=== PATIENT | male | born 1975 | race Caucasian/White ===

== ENCOUNTER 2017-12-13 21:04 | Emergency (ER) | payer MEDICAID, SELFPAY ==
[2017-12-13 21:05] VITALS: BP 125/88; PULSE 107; RESP 14; TEMP 36.9; O2SAT 96; BMI 23.7
--- NOTE | 2017-12-13 21:45 | RAD_ITS ---
STUDY: X-RAY - RIGHT HAND REASON FOR EXAM: Male, 42 years old. Injury to right hand after punching refrigerator. TECHNIQUE: Three view(s) of the hand. COMPARISON: None. FINDINGS: Bones: There is a comminuted fracture of the distal aspect of the fifth metacarpal with dorsal angulation at the fracture site. Joints: The joints are unremarkable. Soft tissues: The soft tissues are unremarkable. Foreign body: None RAD/Hand Min 3 Views IMPRESSION: Boxer's fracture of the fifth metacarpal as described. Electronically Signed: Vin Malhotra MD at 22:34 EST , Service support ,
[2017-12-13] MEDS: Diphth,Pertuss(Acell),Tet Vac 0.5 ML Vial IM (22:19)
--- NOTE | 2017-12-13 23:27 | ED.DCSUM_ITS ---
- ER Visit Summary Date of Service: 12/13/17 Chief Complaint: Right hand pain History of Present Illness: The patient is a 42 M presenting with right hand pain. Patient states he was angry and punched the refrigerator. He denies hitting a person. He denies suicidal ideation. He is right-handed. No other injuries. Physical Examination: Vitals are stable. Patient is afebrile. Alert no acute distress. HEENT exam is unremarkable. Lungs are clear and equal bilaterally. Heart is regular rate and rhythm. Extremities tenderness of 5th metacarpal. Mild superficial abrasion dorsal right hand. Skin is warm and dry Remainder of exam is unremarkable. Emergency Department Course and Treatment: Ice pack was applied. He was given tetanus IM. X-ray of the right hand shows there is a comminuted fracture of the distal aspect of the fifth metacarpal with dorsal angulation at the fracture site. Orthoglass splint was applied. He was given [place] ?1. Advised to follow-up with Dr. Lopez. Advised return to ED if worsening complaints. Disposition: Discharge home Impression: Right fifth metacarpal fracture This note was generated with Sensipass dictation software. It may contain incorrect words, spelling, and punctuation that were not noted in review of the chart prior to signing ED Disposition - Plan for ED Patient: Chief Complaint: Upper Extremity Injury Instructions: ED Fx Boxer Prescriptions: Hydrocodone/Acetaminophen [[place] 5-325 Tablet] 1 each PO 4X/DAY 2 Days #12 tablet Referrals: Derian Sun MD [Primary Care Provider] - Lincoln Lopez DO [STAFF PHYSICIAN] -
--- NOTE | 2017-12-13 23:29 | ED.DEP ---
ED Disposition - Plan for ED Patient: Chief Complaint: Upper Extremity Injury Instructions: ED Fx Keith Referrals: Derian Sun MD [Primary Care Provider] - Lincoln Lopez DO [STAFF PHYSICIAN] -
[2017-12-13] MEDS: HYDROcodone Bitartrate/Apap 5/325 Tablet PO (23:30)
--- NOTE | 2017-12-13 23:42 | ED.DEP ---
ED Disposition - Plan for ED Patient: Chief Complaint: Upper Extremity Injury Instructions: ED Fx Boxer Prescriptions: Hydrocodone/Acetaminophen [[place] 5-325 Tablet] 1 each PO 4X/DAY 2 Days #12 tablet Referrals: Derian Sun MD [Primary Care Provider] - Lincoln Lopez DO [STAFF PHYSICIAN] -
[2017-12-14 00:08] VITALS: BP 118/78; PULSE 76; RESP 18; O2SAT 100
== END 2017-12-14 00:09 | disposition home or self-care (01) ==
PROVIDERS: Emergency Provider Emergency Medicine; Family Provider Family Medicine; PCP Family Medicine
DX: S62.306A Unspecified fracture of fifth metacarpal bone, right hand, initial encounter for closed fracture (principal); S60.511A Abrasion of right hand, initial encounter; W22.09XA Striking against other stationary object, initial encounter; Y93.9 Activity, unspecified; Y92.9 Unspecified place or not applicable; Y99.9 Unspecified external cause status; Z72.0 Tobacco use; Z23 Encounter for immunization
CPT/HCPCS: 29125; 73130; 90471; 90715; 99283

== ENCOUNTER → 2017-12-25 09:55 | Outpatient (CLI) | payer MEDICAID, SELFPAY ==
--- NOTE | 2017-12-25 09:58 | RAD_ITS ---
STUDY: X-RAY - RIGHT HAND REASON FOR EXAM: Male, 42 years old. Follow-up for fifth metacarpal fracture. TECHNIQUE: 3 view(s) of the hand were obtained in a cast. COMPARISON: Comparison is made with prior study dated December 13, 2017. FINDINGS: Normal radiocarpal articulation. Normal distal radioulnar joint. Normal visualized carpal bones. Normal carpal articulations Normal carpometacarpal articulation of the thumb. Normal second through fifth carpometacarpal joints. Stable alignment of the comminuted fracture of the distal aspect of the fifth metacarpal with residual mild dorsal angulation. Normal metacarpophalangeal joint of the thumb. Normal interphalangeal joint of the thumb. Normal proximal and distal phalanges of the thumb. Normal metacarpophalangeal joints of the second through fifth fingers. Normal proximal and distal interphalangeal joints of the second through fifth fingers. Normal phalanges of the second through fifth fingers. The soft tissue structures are unremarkable. RAD/Hand Min 3 Views IMPRESSION: Stable alignment of the boxer type fracture of the distal fifth metacarpal. Electronically Signed: Paulo Zavala MD at 8:18 EST Tel [phone], Service support ,
== END ==
PROVIDERS: Family Provider Family Medicine; PCP Family Medicine; Visit Provider Orthopaedic Surgery
DX: S62.336A Displaced fracture of neck of fifth metacarpal bone, right hand, initial encounter for closed fracture (principal); X58.XXXA Exposure to other specified factors, initial encounter; Y93.9 Activity, unspecified; Y92.9 Unspecified place or not applicable; Y99.9 Unspecified external cause status
CPT/HCPCS: 73130

== ENCOUNTER → 2018-01-08 09:43 | Outpatient (CLI) | payer MEDICAID, SELFPAY ==
--- NOTE | 2018-01-08 09:45 | RAD_ITS ---
XR Hand Min 3 Views INDICATION: fracture COMPARISON: December 25, 2017 TECHNIQUE: 3 views of the right hand FINDINGS: There is redemonstration of an angulated fracture at the distal diaphyseal region of the right fifth carpal. Overlying cast obscures osseous detail. There is suggestion of faint periosteal reaction/early signs of healing. RAD/Hand Min 3 Views IMPRESSION: Stable angulation at the right fifth metacarpal fracture. Signs of healing. at 1817 Reported and signed by: Shikha Pineda MD Electronically Signed: Shikha Pineda MD at 17:15 EST Tel , Service support ,
== END ==
PROVIDERS: Family Provider Family Medicine; PCP Family Medicine; Visit Provider Orthopaedic Surgery
DX: S62.336A Displaced fracture of neck of fifth metacarpal bone, right hand, initial encounter for closed fracture (principal); X58.XXXA Exposure to other specified factors, initial encounter; Y93.9 Activity, unspecified; Y92.9 Unspecified place or not applicable; Y99.9 Unspecified external cause status
CPT/HCPCS: 73130

== ENCOUNTER → 2018-01-22 09:55 | Outpatient (CLI) | payer MEDICAID, SELFPAY ==
--- NOTE | 2018-01-22 09:59 | RAD_ITS ---
STUDY: X-RAY - RIGHT HAND REASON FOR EXAM: Male, 42 years old. Follow-up fracture. TECHNIQUE: 3 view(s) of the hand. COMPARISON: January 08, 2018. FINDINGS: Normal radiocarpal articulation. Normal distal radioulnar joint. Normal visualized carpal bones. Normal carpal articulations Normal carpometacarpal articulation of the thumb. Normal second through fifth carpometacarpal joints. Again seen is a fracture of the distal fifth metacarpal with volar angulation of the distal fracture fragment. There is no marked callus formation to suggest healing. The fracture lines are clearly defined. Remainder the metacarpals are unremarkable. Normal metacarpophalangeal joint of the thumb. Normal interphalangeal joint of the thumb. Normal proximal and distal phalanges of the thumb. Normal metacarpophalangeal joints of the second through fifth fingers. Normal proximal and distal interphalangeal joints of the second through fifth fingers. Normal phalanges of the second through fifth fingers. The soft tissue structures are unremarkable. The semiradiopaque cast seen on the prior study is no longer present. RAD/Hand Min 3 Views IMPRESSION: Comminuted fracture of the fifth metacarpal with volar angulation of the head of the metacarpal. There is no visualized callus formation or healing. Electronically Signed: Miguel Angel Yanez DO at 17:10 EDT Tel [phone], Service support ,
== END ==
PROVIDERS: Family Provider Family Medicine; PCP Family Medicine; Visit Provider Orthopaedic Surgery
DX: S62.336A Displaced fracture of neck of fifth metacarpal bone, right hand, initial encounter for closed fracture (principal); X58.XXXA Exposure to other specified factors, initial encounter; Y93.9 Activity, unspecified; Y92.9 Unspecified place or not applicable; Y99.9 Unspecified external cause status
CPT/HCPCS: 73130

== ENCOUNTER → 2018-02-05 09:43 | Outpatient (CLI) | payer MEDICAID, SELFPAY ==
--- NOTE | 2018-02-05 09:46 | RAD_ITS ---
STUDY: X-RAY - RIGHT HAND REASON FOR EXAM: Male, 42 years old. Follow-up contrast in TECHNIQUE: 3 view(s) of the hand. COMPARISON: 01/22/2018 FINDINGS: Normal radiocarpal articulation. Normal distal radioulnar joint. Normal visualized carpal bones. Normal carpal articulations Normal carpometacarpal articulation of the thumb. Normal second through fifth carpometacarpal joints. Boxer type fracture of the fifth distal metacarpal with volar angulation with mild impaction, there is no evidence of callus formation. There is no apparent interval change. Otherwise normal metacarpi. Normal metacarpophalangeal joint of the thumb. Normal interphalangeal joint of the thumb. Normal proximal and distal phalanges of the thumb. Normal metacarpophalangeal joints of the second through fifth fingers. Normal proximal and distal interphalangeal joints of the second through fifth fingers. Normal phalanges of the second through fifth fingers. The soft tissue structures are unremarkable. RAD/Hand Min 3 Views IMPRESSION: Boxer type fracture fifth metacarpals without callus formation. Electronically Signed: Mae Castro MD at 7:47 EDT , Service support ,
== END ==
PROVIDERS: Family Provider Family Medicine; PCP Family Medicine; Visit Provider Orthopaedic Surgery
DX: S62.336A Displaced fracture of neck of fifth metacarpal bone, right hand, initial encounter for closed fracture (principal); X58.XXXA Exposure to other specified factors, initial encounter; Y93.9 Activity, unspecified; Y92.9 Unspecified place or not applicable; Y99.9 Unspecified external cause status; S62.306D Unspecified fracture of fifth metacarpal bone, right hand, subsequent encounter for fracture with routine healing; X58.XXXD Exposure to other specified factors, subsequent encounter
CPT/HCPCS: 73130; 97166; 97760

== ENCOUNTER 2018-02-05 10:00 | Outpatient (RCR) | payer MEDICAID, SELFPAY ==
--- NOTE | 2018-02-05 16:18 | HP.OTEVAL_ITS ---
Patient's Visit Information AKI VASQUEZ is a 42 year old M, referred to Occupational Therapy by Lincoln Lopez DO,MTODD, with a diagnosis of Right 5th pox.phal fx. Date of Evaluation: 02/05/18 Occupational Therapist: Melody Banuelos, USHA/John, CHT - Subjective Subjective: Pt arrives from office in need of custom right orthosis to provide protection and support to right 5th prox. phal while pt contines to heal - states he fx his hand Dec.12 and his healing has been slow- - ROM ROM Comments: pt demo with MCP to 30 degrees of flex- and PIP ext to 0, to place pt in dr. specified position- - Strength Strength Comments: Not tested- order for protective orthosis - Hand/Wrist Evaluation Total Score of Pain & Functional Sections: 33 - Goals Goal:: pt demo understanding of orthosis use for right hand by end of 1st session. pt will demo understaning of skin precautions while using orthosis by end of 1st session. pt will demo ind. donning/doffing orthosis by end of 1st session. pt demo understanding to return to clinic for orthosis adj. as needed to increase compliance and use of orthosis by end of 1st session. - Rehabilitation General Assessment: pt demo a need of custom orthosis for pt to cont. with healing- of right hand fx. pt was ed. on orthosis use and precautions. pt was also advised to return to the clinic for adj. to orthosis as needed to ensure comfort Rehabilitation Potential: Good - Anticipated Interventions Anticipated Interventions: Orthoses, Home Program Other Interventions: pt ed. on orthosis use and precautions- and to return to clinic for adj of orthosis if skin irritation or swelling arises - Visit Plan Frequency: one visit General Plan: pt seen for orthosis alisson. only at this time- TEXT: Thank you for the opportunity to evaluate your patient. For Medicare and Medicare HMO plans, please review the plan of care and approve it. It will need to be FAXED BACK to us at [phone] for Medicare purposes. Please let me know if there are questions or concerns regarding this plan of care. Physician Signature: Date:
--- NOTE | 2018-04-22 13:52 | HP.OT.NRP ---
HP - Discharge Summary - Patient Information AKI VASQUEZ was seen in my office for initial evaluation on 02/05/18. The following Plan of Care was established for this patient: Initial Frequency: one visit - Anticipated Interventions Anticipated Interventions: Orthoses, Home Program Other Interventions: pt ed. on orthosis use and precautions- and to return to clinic for adj of orthosis if skin irritation or swelling arises This patient was last seen in our office 02/05/18. Pertinent comments regarding their Occupational therapy will appear below: pt was seen for othosis alisson. only- pt did not return and is now D/C at this time. At this point I will be discontinuing this patient from occupational therapy. I would be happy to see this patient again in the future if found appropriate by the physician. Thank you! Melody Banuelos, OTR/L, CHT
== END 2018-02-05 19:00 | disposition home or self-care (01) ==
LOC: OT 10:00
PROVIDERS: Family Provider Family Medicine; PCP Family Medicine; Visit Provider Orthopaedic Surgery
DX: S62.306D Unspecified fracture of fifth metacarpal bone, right hand, subsequent encounter for fracture with routine healing
CPT/HCPCS: 97166; 97760

== ENCOUNTER → 2018-02-26 09:40 | Outpatient (CLI) | payer MEDICAID, SELFPAY ==
--- NOTE | 2018-02-26 09:42 | RAD_ITS ---
STUDY: X-RAY - RIGHT HAND REASON FOR EXAM: Male, 42 years old. History of fracture with pain radiating to the elbow. TECHNIQUE: 3 view(s) of the hand. COMPARISON: Prior right hand films of February 05, 2018 FINDINGS: Normal radiocarpal articulation. Normal distal radioulnar joint. Degenerative cyst of the navicular. Normal carpal articulations Normal carpometacarpal articulation of the thumb. Normal second through fifth carpometacarpal joints. Healing fracture of the distal fifth metacarpal with a mild radial and moderate volar displacement unchanged from prior exam. Increasing callus at the fracture site. Normal metacarpophalangeal joint of the thumb. Normal interphalangeal joint of the thumb. Normal proximal and distal phalanges of the thumb. Normal metacarpophalangeal joints of the second through fifth fingers. Normal proximal and distal interphalangeal joints of the second through fifth fingers. Normal phalanges of the second through fifth fingers. The soft tissue structures are unremarkable. RAD/Hand Min 3 Views IMPRESSION: Healing fracture of the distal fifth metacarpal. Increasing callus at the fracture site. Continued mild radial and moderate volar angulation of the distal fracture. Electronically Signed: Radha Madison MD at 16:58 EDT , Service support ,
== END ==
PROVIDERS: Family Provider Family Medicine; PCP Family Medicine; Visit Provider Orthopaedic Surgery
DX: S62.336A Displaced fracture of neck of fifth metacarpal bone, right hand, initial encounter for closed fracture (principal); X58.XXXA Exposure to other specified factors, initial encounter; Y93.9 Activity, unspecified; Y92.9 Unspecified place or not applicable; Y99.9 Unspecified external cause status
CPT/HCPCS: 73130

== ENCOUNTER 2018-06-10 10:30 | Outpatient (RCR) | payer MEDICAID, SELFPAY ==
--- NOTE | 2018-04-23 11:19 | HP.OTEVAL_ITS ---
Patient's Visit Information AKI VASQUEZ is a 42 year old M, referred to Occupational Therapy by Sukhwinder Chavez, with a diagnosis of closed displaced Fx of 5th metacarpal bone right hand. Date of Evaluation: 04/23/18 Occupational Therapist: USHA Ferguson/John, CHT - Subjective Subjective: This 42 year old male was seen for inital OT eval following a right 5th MCP fx. s/p right 5th metacarpal ORIF oon 04-11-18. pt attends session for orthoplast ulnar gutter splint hand based and ROM. 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 pt would like to return to PLOF - Pain right hand 6 Pain Intensity Range: 3, 7 - ROM Wrist: right wrist 50/40 left WNL ROM Comments: right MCP LF -20/35 PIP -10/90. right MCP RF 0/40 PIP 0/90. right MCP MF 0/50 PIP 0/65. right MCP IF 0/50 PIP 0/55 - Strength Crop Quantitative Geneticist: right NT Strength Comments: will test strength at later date - Edema Other: minimal - Sensation Sensation Comments: denies - Hand/Wrist Evaluation Total Score of Pain & Functional Sections: 77 - Goals Goal:: following 6 weeks s/p ORIF pt will demo a increase in right industrial relations manager to 40# or greater to increase pts ind. with BADLS and IADLS Goal:: pt will demo the ability to form a composite fist to return to performing his ADLS and IADLS at ind. level. Goal:: pt will report pain no greater than 1/10 with use of right hand when performing IADLS and home mtg by d/c Goal:: pt will demo the ability to type and manipulate coins ind. by d/c Goal:: pt will demo understanding of scar mtg by end of vist - Rehabilitation General Assessment: Pt demo with healing incision on dorsom of right hand-pt was fabricated custom orthosis ulnar gutter- pt was ed. in use and donning and doffing of orthosis, and orthosis skin precautions. pt demo understanding- Pt was also ed in ROM of digits and wrist,forearm and elbow to increase pts functional grasp. pt again demo understanding of ex. pt would benefit from skilled OT services 1-2x week for 4-6 weeks to gain a composite fist and return pt to PLOF. Rehabilitation Potential: Good - Anticipated Interventions Anticipated Interventions: A/AAROM/PROM, Strengthening, Scar Care, Triggerpoint Release, Modalities, Orthoses, Joint Protection/Energy Conservation, Ergonomic Education, Fine Motor Coord/Mike, Home Program - Visit Plan Frequency: 1-2x /Week Duration: 6 Weeks TEXT: Thank you for the opportunity to evaluate your patient. For Medicare and Medicare HMO plans, please review the plan of care and approve it. It will need to be FAXED BACK to us at [phone] for Medicare purposes. Please let me know if there are questions or concerns regarding this plan of care. Physician Signature: Date:
--- NOTE | 2018-05-20 11:01 | OTREVAL_ITS ---
Sukhwinder Chavez, It has been my pleasure to treat AKI VASQUEZ over the last 9 visits for closed displaced Fx of 5th metacarpal bone right hand. Please see the progress note below for an update on the occupational therapy plan of care! Subjective: pt states he is doing good- states he has been lion tape LF to RF Objective/Function: pt demo with RF MCP flex 55. LF MCP flex 45 following treatment 60 degrees of flex of MCP- pt demo good digit ext as well-. PIP right LF 85. right biomedical equipment tech strength 65# left 120#. pt is making good progress Plan Plan: rec'd increase ROM as able and PRE with HEP Goals - Goals Goal:: following 6 weeks s/p ORIF pt will demo a increase in right biomedical equipment tech to 40# or greater to increase pts ind. with BADLS and IADLS Goal:: pt will demo the ability to form a composite fist to return to performing his ADLS and IADLS at ind. level. Goal:: pt will report pain no greater than 1/10 with use of right hand when performing IADLS and home mtg by d/c Goal:: pt will demo the ability to type and manipulate coins ind. by d/c Goal:: pt will demo understanding of scar mtg by end of 3rd vist Anticipated Interventions Anticipated Interventions: A/AAROM/PROM, Strengthening, Scar Care, Triggerpoint Release, Modalities, Orthoses, Joint Protection/Energy Conservation, Ergonomic Education, Fine Motor Coord/Mike, Home Program Please do not hesitate to contact me at [phone] by phone or Fax: if you have questions or concerns regarding this new plan of care! Sincerely, Melody Banuelos, OTR/L, CHT
--- NOTE | 2018-06-10 11:28 | HP.OTDCSUM ---
HP - OT D/C Summary It has been my pleasure to treat AKI VASQUEZ under orders from Sukhwinder Chavez, for the diagnosis of closed displaced Fx of 5th metacarpal bone right hand for a total of 13 visit(s). Please see the following information for a summary of their discharge status. - Objective Objective/Function: pt demo a right electrical assembler strength 95# a increase from 65#. pt reports no pain. pt demo the ability to form a composite fist. pt is ind. with all IADL and home mtg tasks. - Goals Patient Goals: Regain Mobility, Regain Strength, Decrease Pain, Use Hand/Wrist/Arm Normally Again Goal:: following 6 weeks s/p ORIF pt will demo a increase in right electrical assembler to 40# or greater to increase pts ind. with BADLS and IADLS Goal:: pt will demo the ability to form a composite fist to return to performing his ADLS and IADLS at ind. level. Goal:: pt will report pain no greater than 1/10 with use of right hand when performing IADLS and home mtg by d/c Goal:: pt will demo the ability to type and manipulate coins ind. by d/c Goal:: pt will demo understanding of scar mtg by end of vist - Plan Plan: D/C - D/C Information Discharge Comments: Pt was seen for 13 visits. pt progressed from ROM and strength to become ind. with all BADLS and IADLS. pt has met functional goals in OT and is D/C at this time. If there are questions or concerns regarding this patient's occupational therapy, please fell free to call me at [phone]. Thank you for the referral of this patient. Sincerely, Melody Banuelos, OTR/L, CHT
== END 2018-06-10 19:00 | disposition home or self-care (01) ==
LOC: OT 10:30
PROVIDERS: Family Provider Family Medicine; PCP Family Medicine; Visit Provider Orthopaedic Surgery
DX: S62.336 Displaced fracture of neck of fifth metacarpal bone, right hand (principal)
CPT/HCPCS: 97110; 97140; 97166; 97530; 97760; 97763

== ENCOUNTER 2024-01-12 14:48 | Observation (INO) | payer MEDICAID, SELFPAY ==
[2024-01-12 14:51] VITALS: BP 137/68; PULSE 119; RESP 18; TEMP 36.7; O2SAT 96; BMI 21.2
--- NOTE | 2024-01-12 15:05 | EKG12_ITS ---
Test Reason : DETOX Blood Pressure : / mmHG Vent. Rate : 094 BPM Atrial Rate : 094 BPM P-R Int : 162 ms QRS Dur : 086 ms QT Int : 340 ms P-R-T Axes : 070 069 063 degrees QTc Int : 425 ms Normal sinus rhythm Normal ECG Confirmed by Lincoln Marr ([id number]), development editor KWAN DOWNING ([id number]) on 01/14/2024 7:14:23 AM Referred By: BELTRAN Confirmed By:Lincoln Marr
--- NOTE | 2024-01-12 15:08 | NURSING ---
NO OLD EKGS
--- NOTE | 2024-01-12 15:08 | EX.ED.SAOD ---
HPI History of Present Illness Chief Complaint: Substance Abuse Informant: patient Narrative Narrative: Patient presents requesting help with alcohol detox. He has been a heavy drinker for quite some time. He states he is never been through a formal detox program. He has tried to quit drinking at home cold turkey but only made it about 4 days. He does not believe he is ever had a seizure when he stops drinking. He states he is up to drinking 60-90 beers a week. His last drink was this morning. He does state he feels anxious, but he also has a lot of social issues going on right now and is not sure how much the alcohol is contributing. He is undergoing a separation from his . Patient does report some chest pain, but again is unsure if this is related to anxiety. PFSH PFSH Medical History no medical history no medical history Home Medications ibuprofen 800 mg tablet 800 mg PO TID PRN 12/18/17 [History Last Taken Unknown] Allergy/AdvReac Type Severity Reaction Status Date / Time No Known Allergies Allergy Verified 01/12/24 14:49 Family History Other Cancer Colon cancer Heart disease Surgical History H/O: vasectomy Social History (Updated 01/12/24 @ 15:[address] Sonam Oviedo MD) Smoking Status: Current every day smoker alcohol intake: current alcohol intake frequency: 3 or more drinks per day Alcohol type: beer ROS ROS ED Constitutional Constitutional ED: Denies chills or fever(s) Eyes Eyes: Denies change in vision or discharge from eye(s) ENT ENT ED: Denies discharge from eye(s), rhinorrhea or sore throat Cardiovascular Cardiovascular: Reports chest pain; Denies palpitations Respiratory/Chest Respiratory/Chest: Denies cough or dyspnea Gastrointestinal Gastrointestinal: Denies abdominal pain, nausea or vomiting Genitourinary Genitourinary ED: Denies dysuria Musculoskeletal Musculoskeletal: Denies back pain or extremity pain Integumentary Denies Abrasions or rash Neurologic Neurologic: Denies headache(s) or weakness Psychiatric Psychiatric: Reports anxiety and depression Allergic/Immunologic Allergic/Immunologic ED: Denies lip swelling or urticaria EXAM Physical Exam Const Vital Signs: 01/12/24 14:51 01/12/24 15:18 Temperature 98.1 F 97.2 F L Temperature Source Temporal Oral Pulse Rate 119 H 108 H Respiratory Rate 18 17 Blood Pressure 137/68 H 142/87 H Blood Pressure Mean 91 105 Blood Pressure Source Monitor Blood Pressure Position Supine Blood Pressure Location Right Arm Pulse Ox 96 99 Oxygen Delivery Method Room Air Room Air Positive well nourished and well developed General Appearance ED: well developed HEENT Reports moist mucous membranes Eyes EOMs intact bilaterally Chest Wall inspection of chest normal and palpation of chest normal Resp normal respiratory effort and clear to auscultation bilaterally Cardio Rate: tachycardic GI soft to palpation and non-tender Neuro oriented x3 and no sensory deficits noted Sensorium / Orientation: alert Psych Mood & Affect: anxious and tearful MDM MDM MDM Narrative Medical decision making narrative: Patient reviews the rules the detox program. IV line initiated. Patient given IV Ativan. EKG obtained to evaluate for cardiac arrhythmia/ischemia. Labwork obtained to evaluate for leukocytosis, anemia, and electrolyte derangement. History & Record Review Discussion w/independent historian: Patient Lab Data Attestation: I reviewed the patient's lab results. Labs: Laboratory Results - last 24 hr 01/12/24 01/12/24 01/12/24 13:35 14:42 15:00 WBC 10.8 RBC 5.13 Hgb 16.2 Hct 48.7 MCV 94.9 H MCH 31.6 MCHC 33.3 RDW Std Deviation 43.8 RDW Coeff of Yoli 12.6 Plt Count 352 MPV 9.6 Immature Gran % (Auto) 0.500 Neut % (Auto) 66.5 Lymph % (Auto) 26.3 Wheeler % (Auto) 5.3 Eos % (Auto) 0.8 Baso % (Auto) 0.6 Absolute Neuts (auto) 7.2 Absolute Lymphs (auto) 2.84 Nucleated RBC % 0 Sodium 143 Potassium 3.7 Chloride 105 Carbon Dioxide 30.0 Anion Gap 8 BUN 9 Creatinine 1.09 Estim Creat Clear Calc 84.34 Est GFR (MDRD) Af Amer 93 Est GFR (MDRD) Non-Af 77 BUN/Creatinine Ratio 8.3 L Glucose 77 Calcium 9.2 Total Bilirubin 0.40 AST 11 L ALT 20 Alkaline Phosphatase 79 Total Protein 7.4 Albumin 4.0 Globulin 3.4 Albumin/Globulin Ratio 1.2 Ur Drug Screen Comment Ethyl Alcohol < 3.0 EKG Initial EKG: Attestation: I personally reviewed and interpreted this EKG as follows: Interpretation: Sinus Rhythm (Sinus at 94 with no acute ischemia.) Treatment and Re-Evaluation Narrative: CBC was normal white count at 10.8 with a hemoglobin of 16.2. Normal differential. Chemistry studies unremarkable. LFTs are unremarkable. EtOH is less than 3. Urine tox screen has been collected but is currently pending. I will speak with hospitalist regarding admission. Discharge Plan Triage Chief Complaint: Substance Abuse ED Provider: Sonam Oviedo Dx/Rx/DC Orders Clinical Impression: Desire for detoxification, ETOH abuse Prescriptions: No Action ibuprofen 800 mg tablet 800 mg PO TID PRN Primary Care Provider: Derian Sun Referrals: Derian Sun MD [Primary Care Provider] - Disposition Disposition: [facility]
[2024-01-12 15:18] VITALS: BP 142/87; PULSE 108; RESP 17; TEMP 36.2; O2SAT 99
[2024-01-12] MEDS: Lorazepam 2 MG/ML WCH Syringe 1 MG IV (15:23)
[2024-01-12 15:25] LABS: Absolute Lymphocyte Count 2.84 X10^3/uL (0.83-4.51); Absolute Neutrophil Count 7.2 X10^3/uL (2.0-7.7); Basophil# 0.07 X10^3/uL; Basophil% 0.6 % (0-1); Eosinophil# 0.09 X10^3/uL; Eosinophils% 0.8 % (0-5); Hematocrit 48.7 % (40-54); Hemoglobin 16.2 g/dL (13.0-16.5); Lymphocyte # 2.84 X10^3/ul (0.83-4.51); Lymphocyte % 26.3 % (19-41); Mean Corp Hgb Conc 33.3 g/dL (32-36); Mean Corpuscular Hgb 31.6 pg (27.0-32.0); Mean Corpuscular Volume 94.9 fL (80-94); Mean Platelet Vol. 9.6 fl (6.2-12.0); Monocyte# 0.57 X10^3/uL; Monocyte% 5.3 % (0-10); NRBC Flagged by Analyzer 0 % (0-5); Neutrophil # 7.16 X10^3/uL (2.7-7.7); Neutrophil % 66.5 % (47-70); Platelet Count 352 K/mm3 (150-450); RBC Distribution Width CV 12.6 % (11.6-14.6); RBC Distribution Width SD 43.8 fl (35.1-43.9); Red Blood Count 5.13 M/mm3 (4.6-6.2); White Blood Count 10.8 K/mm3 (4.4-11.0)
[2024-01-12 15:41] LABS: Alcohol, Blood (Medical)-Serum < 3.0 mg/dL
[2024-01-12 15:50] LABS: ALB/GLOB Ratio 1.2 RATIO (0.9-2.4); AST(SGOT) 11 U/L (15-37); Alanine Aminotransfer ALT/SGPT 20 U/L (16-61); Alkaline Phosphatase 79 U/L (45-117); Anion Gap 8 (5-15); BUN 9 mg/dL (7-18); BUN/Creat Ratio 8.3 RATIO (10-20); Calcium,Total 9.2 mg/dL (8.5-10.1); Chloride 105 mmol/L (98-107); Creatinine, Serum 1.09 mg/dL (0.70-1.30); EST Glomerular Filtration Rate 77 mL/min (>60); Est Glom Filt Rate - Afr Amer 93 mL/min (>60); Estimated Creatinine Clearance 84.34 ml/min; Globulin 3.4 g/dL (2.2-4.2); Glucose 77 mg/dL (74-106); Potassium 3.7 mmol/L (3.5-5.1); Protein, Total 7.4 g/dL (6.4-8.2); Sodium Level 143 mmol/L (136-145)
--- NOTE | 2024-01-12 16:02 | ED.RN ---
Paged hospitalist for admit
[2024-01-12 16:04] LABS: Amphetamine Urine VISTA NEGATIVE (<1000 ng/mL); Barbiturate Urine VISTA NEGATIVE (< 200 ng/mL); Benzodiazepine Urine VISTA NEGATIVE (< 200 ng/mL); Cocaine Urine VISTA NEGATIVE (< 300 ng/mL); Ecstacy Urine VISTA NEGATIVE (< 500 ng/mL); Methadone Urine VISTA NEGATIVE (< 300 ng/mL); PCP Urine VISTA NEGATIVE (< 25 ng/mL); THC Urine VISTA NEGATIVE (< 50 ng/mL); Vista UDS pH Range 6
--- NOTE | 2024-01-12 16:04 | PCM.HP.STD ---
[facility] - General General Date of Service: 01/12/24 Chief Complaint: Desire for alcohol detoxification HPI Narrative AKI VASQUEZ, is a 48 M with no significant past medical history who presents to the ED for alcohol detox. He has been drinking 60 to 90 cans of beers every week for the past 6 months. He has been extremely stressed because of ongoing social issues in his personal life. Also smokes about 2 packs a day. He is motivated to quit. 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 His last drink was this morning [facility] Medical History no medical history Home Medications ibuprofen 800 mg tablet 800 mg PO TID PRN 12/18/17 [History Last Taken Unknown] Allergy/AdvReac Type Severity Reaction Status Date / Time No Known Allergies Allergy Verified 01/12/24 14:49 Family History Other Cancer Colon cancer Heart disease Surgical History H/O: vasectomy Social History (Updated 01/12/24 @ 15:[address] Sonam Oviedo MD) Smoking Status: Current every day smoker alcohol intake: current alcohol intake frequency: 3 or more drinks per day Alcohol type: beer ROS Review of Systems ROS Unobtainable: Denies due to encephalopathy, due to endotracheal tube, due to mental condition, due to mental status or other Constitutional Constitutional: Denies anorexia, change in weight, chills, fatigue, fever(s), malaise, night sweats, weakness or other Eyes Eyes: Denies blurry vision, change in eye color, change in vision, discharge from eye(s), double vision, erythema, eye pain, loss of vision or other ENT HEENT: Denies abnormal hearing, dysphagia, ear pain, epistaxis, headache(s), hearing loss, nasal congestion, nasal discharge, post nasal drip, sinus pressure, sore throat or other Cardiovascular Cardiovascular: Denies chest pain, claudication, dyspnea on exertion, edema, lightheadedness, orthopnea, palpitations, paroxysmal nocturnal dyspnea, rapid heart rate, syncope or other Respiratory/Chest Respiratory/Chest: Denies cough, dyspnea, excessive phlegm production, hemoptysis, productive cough, shortness of breath at rest, shortness of breath with exertion, wheezing or other Gastrointestinal Gastrointestinal: Denies abdominal pain, coffee ground emesis, constipation, diarrhea, dyspepsia, hematemesis, hematochezia, loose stools, melena, nausea, vomiting or other Genitourinary Genitourinary: Denies burning urination, difficulty urinating, dysuria, hematuria, nocturia, urinary frequency, urinary hesitancy, urinary incontinence, urinary urgency or other Musculoskeletal Musculoskeletal: Denies arthralgias, back pain, joint pain, joint stiffness, joint swelling, myalgias, neck pain or other Neurologic Neurologic: Denies abnormal gait, abnormal speech, confusion, disequilibrium, dizziness, focal weakness, headache(s), numbness, paresthesias, seizure-like activity, seizures, syncope, tingling, tremor(s) or other Psychiatric Psychiatric: Denies anxiety, depression, homicidal ideation, suicidal ideation or other Endocrine Endocrinology: Denies change in body appearance, cold intolerance, excessive sweating, heat intolerance, polydipsia, polyuria or other Hematologic/Lymphatic Hematologic/Lymphatic: Denies anemia, easy bleeding, easy bruising, lymphadenopathy or other Allergic/Immunologic Allergic/Immunologic: Denies rhinitis, hives, eczemia, asthma or other Vital Signs Vital Signs Vital Signs: 01/12/24 14:51 01/12/24 15:18 Temperature 98.1 F 97.2 F L Temperature Source Temporal Oral Pulse Rate 119 H 108 H Respiratory Rate 18 17 Blood Pressure 137/68 H 142/87 H Blood Pressure Mean 91 105 Blood Pressure Source Monitor Blood Pressure Position Supine Blood Pressure Location Right Arm Pulse Ox 96 99 Oxygen Delivery Method Room Air Room Air Weight Weight: 156 lb 14.4 oz Body Mass Index (BMI) 21.2 Physical Exam Const alert and oriented x3 Constitutional Narrative: Malnourished HEENT normocephalic Mouth: oral and palatal mucosa normal Eyes PERRL and EOMs intact bilaterally Neck no lymphadenopathy and supple Resp normal respiratory effort Cardio regular rate GI normal to inspection, nondistended, normoactive bowel sounds Extremity normal to inspection Neuro oriented x3 and CN's II-XII intact bilaterally Psych Mood & Affect: anxious Results Medical Records Data Attestation: I reviewed the patient's medical records Lab / Micro Data Attestation: I reviewed the patient's lab results. 01/12/24 15:00 01/12/24 14:42 Labs: Laboratory Results - last 24 hr 01/12/24 13:35: Urine Opiates Screen NEGATIVE, Urine Methadone Screen NEGATIVE, Ur Barbiturates Screen NEGATIVE, Ur Phencyclidine Scrn NEGATIVE, Ur Amphetamines Screen NEGATIVE, MDMA (Ecstasy) Screen NEGATIVE, U Benzodiazepines Scrn NEGATIVE, Urine Cocaine Screen NEGATIVE, U Cannabinoids Screen NEGATIVE, Ur Drug Screen Comment 01/12/24 14:42: Sodium 143, Potassium 3.7, Chloride 105, Carbon Dioxide 30.0, Anion Gap 8, BUN 9, Creatinine 1.09, Estim Creat Clear Calc 84.34, Est GFR (MDRD) Af Amer 93, Est GFR (MDRD) Non-Af 77, BUN/Creatinine Ratio 8.3 L, Glucose 77, Calcium 9.2, Total Bilirubin 0.40, AST 11 L, ALT 20, Alkaline Phosphatase 79, Total Protein 7.4, Albumin 4.0, Globulin 3.4, Albumin/Globulin Ratio 1.2 01/12/24 15:00: WBC 10.8, RBC 5.13, Hgb 16.2, Hct 48.7, MCV 94.9 H, MCH 31.6, MCHC 33.3, RDW Std Deviation 43.8, RDW Coeff of Yoli 12.6, Plt Count 352, MPV 9.6, Immature Gran % (Auto) 0.500, Neut % (Auto) 66.5, Lymph % (Auto) 26.3, [place] % (Auto) 5.3, Eos % (Auto) 0.8, Baso % (Auto) 0.6, Absolute Neuts (auto) 7.2, Absolute Lymphs (auto) 2.84, Nucleated RBC % 0, Ethyl Alcohol < 3.0 Assessment & Plan Assessment/Plan (1) ETOH abuse: PLAN: Plan 48-year-old man with no past medical history presents for inpatient alcohol detoxification and assistance with the addiction. His last drink was today morning, he is a heavy alcohol user and drinks about 60-90 beers per week. He is motivated to quit at this time. No other drug use 1. Alcohol detoxification: -Will be started on the CIWA protocol -Will be started on gabapentin as needed, Bentyl as needed, hydroxyzine as needed, thiamine supplementation folic acid supplementation -Phenobarbital taper 2. DVT: Low risk for DVT, encourage mobilization 3. Anxiety: Likely related to alcohol withdrawal, will evaluate again after the detoxification Charges/Coding Visit Charges Inpatient E&M: 79381 Init Hosp L2
--- NOTE | 2024-01-12 16:16 | NURSING ---
MED SURG MCINTYRE ETOH ABUSE, DESIRE FOR DETOX
[2024-01-12 20:25] VITALS: BP 118/81; PULSE 82; RESP 16; TEMP 36.7; O2SAT 92
[2024-01-12 20:42] VITALS: BMI 19.8
[2024-01-12] MEDS: hydrOXYzine PAM 25 MG Capsule 50 MG PO (21:14)
[2024-01-12] MEDS: Phenobarbital 32.4 MG Tablet 64.8 MG PO (21:14)
[2024-01-12 21:22] VITALS: BP 119/88; PULSE 70; RESP 18; TEMP 36.8; O2SAT 95
[2024-01-12 21:43] LABS: Prothrombin Time (Protime)PT. 12.7 SECONDS (11.7-14.9)
[2024-01-13] MEDS: Phenobarbital 32.4 MG Tablet 64.8 MG PO ×6 (00:55→20:09)
[2024-01-13] MEDS: hydrOXYzine PAM 25 MG Capsule 50 MG PO ×2 (00:55→20:08)
[2024-01-13 05:11] VITALS: BP 116/84; PULSE 81; RESP 18; TEMP 36.6; O2SAT 97
[2024-01-13 07:48] LABS: Absolute Lymphocyte Count 2.61 X10^3/uL (0.83-4.51); Absolute Neutrophil Count 3.8 X10^3/uL (2.0-7.7); Basophil# 0.06 X10^3/uL; Basophil% 0.8 % (0-1); Eosinophil# 0.15 X10^3/uL; Eosinophils% 2.1 % (0-5); Hematocrit 43.6 % (40-54); Hemoglobin 14.5 g/dL (13.0-16.5); Lymphocyte # 2.61 X10^3/ul (0.83-4.51); Lymphocyte % 36.4 % (19-41); Mean Corp Hgb Conc 33.3 g/dL (32-36); Mean Corpuscular Hgb 31.7 pg (27.0-32.0); Mean Corpuscular Volume 95.2 fL (80-94); Mean Platelet Vol. 9.7 fl (6.2-12.0); Monocyte# 0.53 X10^3/uL; Monocyte% 7.4 % (0-10); NRBC Flagged by Analyzer 0 % (0-5); Neutrophil # 3.81 X10^3/uL (2.7-7.7); Platelet Count 268 K/mm3 (150-450); RBC Distribution Width CV 12.9 % (11.6-14.6); RBC Distribution Width SD 44.4 fl (35.1-43.9); Red Blood Count 4.58 M/mm3 (4.6-6.2); White Blood Count 7.2 K/mm3 (4.4-11.0)
[2024-01-13 08:25] LABS: ALB/GLOB Ratio 1.2 RATIO (0.9-2.4); AST(SGOT) 8 U/L (15-37); Alanine Aminotransfer ALT/SGPT 15 U/L (16-61); Albumin, Serum 3.1 g/dL (3.2-5.0); Alkaline Phosphatase 57 U/L (45-117); Anion Gap 5 (5-15); BUN 9 mg/dL (7-18); BUN/Creat Ratio 11.7 RATIO (10-20); Calcium,Total 8.1 mg/dL (8.5-10.1); Chloride 112 mmol/L (98-107); Creatinine, Serum 0.77 mg/dL (0.70-1.30); EST Glomerular Filtration Rate 115 mL/min (>60); Est Glom Filt Rate - Afr Amer 140 mL/min (>60); Estimated Creatinine Clearance 111.38 ml/min; Globulin 2.6 g/dL (2.2-4.2); Glucose 86 mg/dL (74-106); Magnesium 2.6 mg/dL (1.6-2.6); Potassium 3.8 mmol/L (3.5-5.1); Protein, Total 5.7 g/dL (6.4-8.2); Sodium Level 143 mmol/L (136-145); Thyroid Stim Hormone (TSH) 0.76 uIU/mL (0.358-3.74)
[2024-01-13 09:09] VITALS: BP 118/77; PULSE 88; RESP 18; TEMP 36.6; O2SAT 96
[2024-01-13] MEDS: Ensure Plus High Protein 120 ML LIQUID PO (09:21)
[2024-01-13] MEDS: Thiamine Hydrochloride 100 MG Tablet PO (09:21)
[2024-01-13] MEDS: Folic Acid 1 MG Tablet PO (09:21)
--- NOTE | 2024-01-13 09:53 | PCM.PN.HOSP ---
Reason for Visit Reason for Visit: Diagnoses Alcohol abuse, uncomplicated (01/12/24) Objective Data Objective Data Vital Signs: Vital Signs Temp Pulse Resp BP Pulse Ox O2 Del Method 97.8 F 88 18 118/77 96 Room Air 01/13/24 09:09 01/13/24 09:09 01/13/24 09:09 01/13/24 09:09 01/13/24 09:09 01/13/24 09:09 Oxygen Delivery Method Room Air Weight: 146 lb 6 oz Body Mass Index (BMI) 19.8 Lab / Micro Data 01/13/24 07:04 01/13/24 07:04 Labs: Laboratory Results - last 24 hr 01/12/24 13:35: Urine Opiates Screen NEGATIVE, Urine Methadone Screen NEGATIVE, Ur Barbiturates Screen NEGATIVE, Ur Phencyclidine Scrn NEGATIVE, Ur Amphetamines Screen NEGATIVE, MDMA (Ecstasy) Screen NEGATIVE, U Benzodiazepines Scrn NEGATIVE, Urine Cocaine Screen NEGATIVE, U Cannabinoids Screen NEGATIVE, Ur Drug Screen Comment 01/12/24 14:42: Sodium 143, Potassium 3.7, Chloride 105, Carbon Dioxide 30.0, Anion Gap 8, BUN 9, Creatinine 1.09, Estim Creat Clear Calc 84.34, Est GFR (MDRD) Af Amer 93, Est GFR (MDRD) Non-Af 77, BUN/Creatinine Ratio 8.3 L, Glucose 77, Calcium 9.2, Total Bilirubin 0.40, AST 11 L, ALT 20, Alkaline Phosphatase 79, Total Protein 7.4, Albumin 4.0, Globulin 3.4, Albumin/Globulin Ratio 1.2 01/12/24 15:00: WBC 10.8, RBC 5.13, Hgb 16.2, Hct 48.7, MCV 94.9 H, MCH 31.6, MCHC 33.3, RDW Std Deviation 43.8, RDW Coeff of Yoli 12.6, Plt Count 352, MPV 9.6, Immature Gran % (Auto) 0.500, Neut % (Auto) 66.5, Lymph % (Auto) 26.3, [place] % (Auto) 5.3, Eos % (Auto) 0.8, Baso % (Auto) 0.6, Absolute Neuts (auto) 7.2, Absolute Lymphs (auto) 2.84, Nucleated RBC % 0, Ethyl Alcohol < 3.0 01/12/24 21:23: PT 12.7, INR 1.0 01/13/24 07:04: WBC 7.2, RBC 4.58 L, Hgb 14.5, Hct 43.6, MCV 95.2 H, MCH 31.7, MCHC 33.3, RDW Std Deviation 44.4 H, RDW Coeff of Yoli 12.9, Plt Count 268, MPV 9.7, Immature Gran % (Auto) 0.300, Neut % (Auto) 53.0, Lymph % (Auto) 36.4, [place] % (Auto) 7.4, Eos % (Auto) 2.1, Baso % (Auto) 0.8, Absolute Neuts (auto) 3.8, Absolute Lymphs (auto) 2.61, Nucleated RBC % 0, Sodium 143, Potassium 3.8, Chloride 112 H, Carbon Dioxide 26.0, Anion Gap 5, BUN 9, Creatinine 0.77, Estim Creat Clear Calc 111.38, Est GFR (MDRD) Af Amer 140, Est GFR (MDRD) Non-Af 115, BUN/Creatinine Ratio 11.7, Glucose 86, Calcium 8.1 L, Phosphorus 4.0, Magnesium 2.6, Total Bilirubin 0.30, Direct Bilirubin 0.10, AST 8 L, ALT 15 L, Alkaline Phosphatase 57, Total Protein 5.7 L, Albumin 3.1 L, Globulin 2.6, Albumin/Globulin Ratio 1.2, TSH 0.76 Physical Exam Narrative Seen and examined. Patient is states he has ordered for hallucinations sometimes tactile hallucination 2. Patient drinks 60 to 90 cans of Joel beer in 1 week. Physical exam General: Alert, Oriented x3, Cooperative HEENT: Atraumatic, PERRLA, EOMI, Normocephalic Oral: No Gingival or Mucosal Lesions/ Ulcerations Neck: Supple, No JVD, Negative Carotid Bruits Chest wall/Lungs: Air entry diminished in bilateral lung bases. No crepitation/rhonchi Cardiovascular: Regular rate, Regular Rhythm, Normal S1, Normal S2, No M/G/R Abdomen: Bowel Sounds Present, Soft, Non Tender, Non-Distended : No dysuria. No renal angle tenderness. No suprapubic tenderness. Extremities: No edema, Capillary Refill Less than 3 Seconds Skin: No rashes, No breakdown Musculoskeletal: No Tenderness to Palpation of Joints or Extremities Neurological: Cranial nerves II-XII grossly intact, DTR 2+/4. No acute focal neurological deficit. Psych/Mental Status: Flat affect. Feeling restless, could not sleep. Hallucination Assessment & Plan Assessment/Plan (1) ETOH abuse: PLAN: Plan 48-year-old man with no past medical history presents for inpatient alcohol detoxification and assistance with the addiction. His last drink was today morning, he is a heavy alcohol user and drinks about 60-90 beers per week. He is motivated to quit at this time. No other drug use 1. Acute alcohol withdrawal symptoms with hallucinations with chronic alcohol use dependence and tolerance: Patient is being admitted to Medr floor. Patient on phenobarbital based order set along with other adjunctive medications gabapentin, Bentyl, Vistaril, clonidine, Klonopin as needed for alcohol withdrawal symptom control. Patient is on thiamine and folate acid. CIWA monitor. manager beauty consulted.. 2. Anxiety and hallucinations, psychotic symptoms: Likely related to alcohol withdrawal, will evaluate again after the detoxification 3. DVT prophylaxis: Low risk. Early ambulation encouraged Charges/Coding Visit Charges Inpatient E&M: 50172 Subs Hosp L2
--- NOTE | 2024-01-13 11:30 | ADDICTION ---
This advertising copywriter met with PT to conduct ASAM, MSE, AUDIT assessments and to plan for d/c. PT A+Ox4 and participated actively. All assessments completed. PT plans to f/u with individual counselor at [facility] for RUBY treatment services. PT did not indicate a need for transportation post d[facility]c [facility].
[2024-01-13] MEDS: Senna/Docusate Sodium 1 Tablet 2 TABLET PO (16:02)
[2024-01-13] MEDS: Nicotine Polacrilex 2 MG GUM PO (16:02)
--- NOTE | 2024-01-13 16:47 | CHAPLAIN ---
Type of Pastoral Visit _x__ Initial Visit ___ Follow-up Visit ___ On-call Visit ___ General Patient Visit ___ Spiritual Assessment ___ Family Conference ___ Bereavement ___ Rapid Response ___ Code Blue ___ Other (describe below) Pastoral Care Referral From _x__ Patient ___ Family ___ Nurse ___ Physician ___ Lab Aid ___ Governor Assembler Hydraulic ___ Other (describe below) Sacrament/Intervention _x__ Active listening ___ Anointing ___ Episcopalian ___ Bereavement ___ Communion _x__ Stephanie exploration ___ _x__ Life review _x__ Prayer ___ Reconciliation ___ Sacrament of Sick _x__ Supportive presence ___ Wedding ___ Other (describe below) Pastoral Comments upon entering the room the patient immediately sits up and begins to open up about his life, his hurts, his marriage, his family issues, and his use of alcohol for coping; pt continues through some tears to give examples of his life story and how he wants to restore his marriage in particular; pt is open to discuss what his options are for treatment and support; pt talks about his relationship to God and how he stopped participating in confucianism a number of years ago; pt is open to God and spiritual things and welcomes the prayers and support of this cnc lathe machine operator; prayer is given; patient specifically requests that the cnc lathe machine operator return tomorrow to talk with him again
[2024-01-13 16:56] VITALS: BP 136/89; PULSE 97; RESP 18; TEMP 37.2; O2SAT 96
[2024-01-13 22:00] VITALS: BP 120/96; PULSE 93; RESP 16; TEMP 36.7; O2SAT 99
[2024-01-14] MEDS: hydrOXYzine PAM 25 MG Capsule 50 MG PO ×2 (01:14→20:56)
[2024-01-14] MEDS: Phenobarbital 32.4 MG Tablet 64.8 MG PO ×6 (01:14→20:52)
[2024-01-14 06:00] VITALS: BP 108/91; PULSE 85; RESP 16; TEMP 36.8; O2SAT 97
[2024-01-14] MEDS: Nicotine Polacrilex 2 MG GUM PO ×7 (06:03→22:16)
[2024-01-14 09:00] VITALS: BP 129/97; PULSE 86; RESP 16; TEMP 36.6; O2SAT 99
[2024-01-14] MEDS: Folic Acid 1 MG Tablet PO (09:01)
[2024-01-14] MEDS: Thiamine Hydrochloride 100 MG Tablet PO (09:01)
[2024-01-14 14:15] VITALS: BP 120/89; PULSE 97; RESP 16; TEMP 36.6; O2SAT 96
--- NOTE | 2024-01-14 15:47 | CHAPLAIN ---
Type of Pastoral Visit ___ Initial Visit _x__ Follow-up Visit ___ On-call Visit ___ General Patient Visit ___ Spiritual Assessment ___ Family Conference ___ Bereavement ___ Rapid Response ___ Code Blue ___ Other (describe below) Pastoral Care Referral From _x__ Patient ___ Family ___ Nurse ___ Physician ___ Strainer Cleaner ___ Second Operator ___ Other (describe below) Sacrament/Intervention _x__ Active listening ___ Anointing ___ Jain ___ Bereavement ___ Communion _x__ Stephanie exploration ___ _x__ Life review _x__ Prayer ___ Reconciliation ___ Sacrament of Sick _x__ Supportive presence ___ Wedding ___ Other (describe below) Pastoral Comments returned for follow up at request of the patient; more life review, expression of his thoughts and feelings, information shared about his resources of support and plan for recovery; pt has apprehensions about the future and his marriage/home life which greatly concern him; lots of listening, affirming, offering hope for better days; prayer and spiritual encouragement given
--- NOTE | 2024-01-14 17:40 | PCM.PN.HOSP ---
Reason for Visit Reason for Visit: Diagnoses Alcohol abuse, uncomplicated (01/12/24) Objective Data Objective Data Vital Signs: Vital Signs Temp Pulse Resp BP Pulse Ox O2 Del Method 98 F 97 16 120/89 H 96 Room Air 01/14/24 14:15 01/14/24 14:15 01/14/24 14:15 01/14/24 14:15 01/14/24 14:15 01/14/24 14:15 Oxygen Delivery Method Room Air Weight: 146 lb 6.015 oz Body Mass Index (BMI) 19.8 Intake & Output: Intake and Output for Last 24 Hours 01/12/24 01/13/24 01/14/24 23:59 23:59 23:59 Intake Total 1280 / 1280 Balance 1280 / 1280 Lab / Micro Data 01/13/24 07:04 01/13/24 07:04 Physical Exam Narrative Seen and examined. Patient is doing better than yesterday. No hallucinations or delusion. Patient drinks 60 to 90 cans of Joel beer in 1 week. Physical exam General: Alert, Oriented x3, Cooperative HEENT: Atraumatic, PERRLA, EOMI, Normocephalic Oral: No Gingival or Mucosal Lesions/ Ulcerations Neck: Supple, No JVD, Negative Carotid Bruits Chest wall/Lungs: Air entry diminished in bilateral lung bases. No crepitation/rhonchi Cardiovascular: Regular rate, Regular Rhythm, Normal S1, Normal S2, No M/G/R Abdomen: Bowel Sounds Present, Soft, Non Tender, Non-Distended : No dysuria. No renal angle tenderness. No suprapubic tenderness. Extremities: No edema, Capillary Refill Less than 3 Seconds Skin: No rashes, No breakdown Musculoskeletal: No Tenderness to Palpation of Joints or Extremities Neurological: Cranial nerves II-XII grossly intact, DTR 2+/4. No acute focal neurological deficit. Psych/Mental Status: Flat affect. Quiet. No significant tremors. Assessment & Plan Assessment/Plan (1) ETOH abuse: PLAN: Plan 48-year-old man with no past medical history presents for inpatient alcohol detoxification and assistance with the addiction. His last drink was today morning, he is a heavy alcohol user and drinks about 60-90 beers per week. He is motivated to quit at this time. No other drug use 1. Acute alcohol withdrawal symptoms with hallucinations with chronic alcohol use dependence and tolerance: Patient is being admitted to [facility] floor. Patient on phenobarbital based order set along with other adjunctive medications gabapentin, Bentyl, Vistaril, clonidine, Klonopin as needed for alcohol withdrawal symptom control. Patient is on thiamine and folate acid. CIWA monitor. process manager consulted. 01/13: Patient is doing better. Continue treatment. No acute issues. 2. Anxiety and hallucinations, psychotic symptoms: Likely related to alcohol withdrawal, will evaluate again after the detoxification 01/13: Hallucinations has resolved. 3. DVT prophylaxis: Low risk. Early ambulation encouraged Charges/Coding Visit Charges Inpatient E&M: 08928 Subs Hosp L2
[2024-01-14 20:48] VITALS: BP 142/97; PULSE 101; RESP 18; TEMP 37.2; O2SAT 99
[2024-01-14] MEDS: traZODone 100 MG Tablet PO (23:33)
[2024-01-15] MEDS: Phenobarbital 32.4 MG Tablet 64.8 MG PO ×3 (00:03→10:19)
[2024-01-15 05:04] VITALS: BP 107/79; PULSE 79; RESP 18; TEMP 36.5; O2SAT 95
[2024-01-15 07:50] VITALS: BP 125/88; PULSE 95; RESP 18; TEMP 36.8; O2SAT 98
[2024-01-15] MEDS: Thiamine Hydrochloride 100 MG Tablet PO (07:52)
[2024-01-15] MEDS: Folic Acid 1 MG Tablet PO (07:52)
[2024-01-15] MEDS: Nicotine Polacrilex 2 MG GUM PO ×3 (07:52→12:59)
--- NOTE | 2024-01-15 11:23 | DCINST_ITS ---
Discharge Instructions Diet Discharge Diet: No restrictions Activity Discharge Activity: Return to Normal Activity Weight Bearing Status: Weight bearing as tolerated Dressing / Incision Call your doctor if you observe: Fever of 101 or Higher, Coldness, Increased Pain, Numbness or Tingling, Change in Color, Inability to urinate, Inability to have a bowel movement, Shortness of breath, Dizziness, Fainting spells, Swelling in the ankles, Chest pain, Prolonged hiccupping, Increased palpitations (irregular heartbeat) and Calf discomfort Follow Up Care When: IN 2 WEEKS Test Results: Test results from this visit will be discussed in further detail at your follow- up appointment, if applicable. Discharge Plan Admission Admit Date/Time: 01/12/24 16:14 Primary Reason for Your Visit: Acute alcohol withdrawal syndrome Attending Provider: Isai Gibbs Primary Care Provider: Derian Sun Consulting Providers: Jaime Michael Instructions Additional Instructions / Restrictions: Nicotine gum available [id number]. Discharge Orders/Prescriptions Prescriptions: New nicotine (polacrilex) 2 mg Gum 2 mg PO Q2H PRN PRN (Reason: SMOKING CESSATION) Qty: 0 0RF thiamine HCl (vitamin B1) [Vitamin B-1] 100 mg Tablet 100 mg PO DAILYCM Qty: 30 2RF nicotine 21 mg/24 hr Patch 24 Hour 21 mg transdermal DAILY 28 Days Qty: 28 0RF folic acid 1 mg Tablet 1 mg PO DAILY@0800 Qty: 30 2RF No Action NK Referrals / Follow Up: Derian Sun MD [Primary Care Provider] - Disposition Disposition (needs filled in before D/C Order can be placed): Home, Self Care
--- NOTE | 2024-01-15 11:26 | PCM.DC.SUM ---
Providers Date of Admission: 01/12/24 Date of Discharge: 01/15/24 Primary Care Physician: Dr. Derian Sun MD Reason For Visit: alcohol detox Diagnosis Discharge Diagnosis (1) ETOH abuse: Status: Acute Code(s): F10.10 - Alcohol abuse, uncomplicated Plan 48-year-old man with no past medical history presents for inpatient alcohol detoxification and assistance with the addiction. His last drink was today morning, he is a heavy alcohol user and drinks about 60-90 beers per week. He is motivated to quit at this time. No other drug use 1. Acute alcohol withdrawal symptoms with hallucinations with chronic alcohol use dependence and tolerance: [facility] Patient on phenobarbital based order set along with other adjunctive medications gabapentin, Bentyl, Vistaril, clonidine, Klonopin as needed for alcohol withdrawal symptom control. Patient is on thiamine and folate acid. CIWA monitor. service delivery manager consulted. 01/13: Patient is doing better. Continue treatment. No acute issues. 01/14: Prescription given for thiamine, folic acid and nicotine transdermal patch. The patient has follow-up with outpatient 180 today. Patient reminded for quitting alcohol. 2. Anxiety and hallucinations, psychotic symptoms: Likely related to alcohol withdrawal, will evaluate again after the detoxification 01/13: Hallucinations has resolved. 3. DVT prophylaxis: Low risk. Early ambulation encouraged Discharge medication reconciliation done. Discharge follow-up instructions completed. Discharge process discussed with the patient and all questions were answered to patient's satisfaction. Follow with PCP in 1 to 2 weeks Total time spent, exact 35 minutes on discharge meds reconciliation, examination, coordination of care with nurses and ancillary staff, review of imaging and blood test and discussion with the patient on follow-up instructions. Medications at Discharge Home Medications NK 01/12/24 folic acid 1 mg tablet 1 mg PO DAILY@0800 #30 tabs 01/15/24 nicotine (polacrilex) 2 mg gum 2 mg PO Q2H PRN PRN SMOKING CESSATION #0 ea 01/15/24 nicotine 21 mg/24 hr daily transdermal patch 21 mg transdermal DAILY 28 days #28 ea 01/15/24 thiamine HCl (vitamin B1) 100 mg tablet (Vitamin B-1) 100 mg PO DAILYCM #30 tabs 01/15/24 Physical Exam Narrative Seen and examined. Patient is doing better than yesterday. No hallucinations or delusion. Patient drinks 60 to 90 cans of Joel beer in 1 week. Physical exam General: Alert, Oriented x3, Cooperative HEENT: Atraumatic, PERRLA, EOMI, Normocephalic Oral: No Gingival or Mucosal Lesions/ Ulcerations Neck: Supple, No JVD, Negative Carotid Bruits Chest wall/Lungs: Air entry diminished in bilateral lung bases. No crepitation/rhonchi Cardiovascular: Regular rate, Regular Rhythm, Normal S1, Normal S2, No M/G/R Abdomen: Bowel Sounds Present, Soft, Non Tender, Non-Distended : No dysuria. No renal angle tenderness. No suprapubic tenderness. Extremities: No edema, Capillary Refill Less than 3 Seconds Skin: No rashes, No breakdown Musculoskeletal: No Tenderness to Palpation of Joints or Extremities Neurological: Cranial nerves II-XII grossly intact, DTR 2+/4. No acute focal neurological deficit. Psych/Mental Status: Flat affect. Quiet. No significant tremors. Weight / BMI Weight Weight: 146 lb 6.015 oz Body Mass Index (BMI) 19.8 ABG / Lab / Microbiology Data 01/13/24 07:04 01/13/24 07:04 D/C Instructions Discharge Diet: No restrictions Weight Bearing Status: Weight bearing as tolerated Call your doctor if you observe: Fever of 101 or Higher, Coldness, Increased Pain, Numbness or Tingling, Change in Color, Inability to urinate, Inability to have a bowel movement, Shortness of breath, Dizziness, Fainting spells, Swelling in the ankles, Chest pain, Prolonged hiccupping, Increased palpitations (irregular heartbeat) and Calf discomfort When: IN 2 WEEKS Meaningful Use Info Meaningful Use Diagnoses (Choose all that apply): None applicable Discharge Plan Admission Admit Date/Time: 01/12/24 16:14 Primary Reason for Your Visit: Acute alcohol withdrawal syndrome Attending Provider: Isai Gibbs Primary Care Provider: Derian Sun Consulting Providers: Jaime Michael Instructions Additional Instructions / Restrictions: Nicotine gum available [id number]. Discharge Orders/Prescriptions Prescriptions: New nicotine (polacrilex) 2 mg Gum 2 mg PO Q2H PRN PRN (Reason: SMOKING CESSATION) Qty: 0 0RF thiamine HCl (vitamin B1) [Vitamin B-1] 100 mg Tablet 100 mg PO DAILYCM Qty: 30 2RF nicotine 21 mg/24 hr Patch 24 Hour 21 mg transdermal DAILY 28 Days Qty: 28 0RF folic acid 1 mg Tablet 1 mg PO DAILY@0800 Qty: 30 2RF No Action NK Referrals / Follow Up: Derian Sun MD [Primary Care Provider] - Disposition Disposition (needs filled in before D/C Order can be placed): Home, Self Care Charges/Coding Visit Charges Inpatient E&M: 55171 Disch Hosp >30min
--- NOTE | 2024-01-15 12:20 | PHA.DC_ITS ---
Pharmacy [facility] has performed discharge medication reconciliation and counseling for this patient. Medications were sent to [facility] but patient wanted them sent to [facility]. Called [facility] and spoke to Bettye, she will call [facility] and get the prescriptions transferred. Called nurse Gabriela to let her know about transfer. 1. FOLIC ACID 1MG PO DAILYCM 2. NICOTINE PATCH 21MG TOPICAL DAILY 3. NICOTINE GUM 2MG PO Q2H PRN CRAVINGS 4. THIAMINE 100MG PO DAILYCM The patient's discharge medication list was reviewed for discrepancies and discrepancies were resolved. The patient was counseled on the following discharge medications and changes in medications for homegoing were reviewed. The Reason for Use, instructions for use, and potential side effects were reviewed for all new medications. The patient's questions regarding all of their medications were answered. The patient was able to verbally demonstrate an understanding of their discharge medications. Medications at Discharge Home Medications folic acid 1 mg tablet 1 mg PO DAILY@0800 #30 tabs 01/15/24 nicotine (polacrilex) 2 mg gum 2 mg PO Q2H PRN PRN SMOKING CESSATION #0 ea 01/15/24 nicotine 21 mg/24 hr daily transdermal patch 21 mg transdermal DAILY 28 days #28 ea 01/15/24 thiamine HCl (vitamin B1) 100 mg tablet (Vitamin B-1) 100 mg PO DAILYCM #30 tabs 01/15/24
[2024-01-15 13:00] VITALS: BP 121/88; PULSE 98; RESP 16; TEMP 36.6; O2SAT 100
--- NOTE | 2024-01-15 13:42 | CHAPLAIN ---
Type of Pastoral Visit ___ Initial Visit _x__ Follow-up Visit ___ On-call Visit ___ General Patient Visit ___ Spiritual Assessment ___ Family Conference ___ Bereavement ___ Rapid Response ___ Code Blue ___ Other (describe below) Pastoral Care Referral From _x__ Patient ___ Family ___ Nurse ___ Physician ___ Orthopedic Mechanic ___ Violent Crimes Detective ___ Other (describe below) Sacrament/Intervention _x__ Active listening ___ Anointing ___ Gnosticist ___ Bereavement ___ Communion ___ Stephanie exploration ___ ___ Life review ___ Prayer ___ Reconciliation ___ Sacrament of Sick _x__ Supportive presence ___ Wedding ___ Other (describe below) Pastoral Comments patient requested a visit before he is discharged; discovered pt writing a long letter to his to express his thoughts and feelings to her; pt is attempting to bring reconciliation to his marriage and is affirmed by this batt packer in his choices and efforts; pt expects to go to [facility] directly from here today and again expresses his thanks for the spiritual care support and time given to him to talk and share his life
== END 2024-01-15 13:59 | disposition home or self-care (01) | DRG 775 ==
LOC: ED 15:58 → MS3 01-13 06:09
PROVIDERS: Admitting Provider Internal Medicine; Emergency Provider Emergency Medicine; PCP Family Medicine; Visit Provider Internal Medicine
DX: F10.239 Alcohol dependence with withdrawal, unspecified (principal); F17.200 Nicotine dependence, unspecified, uncomplicated; Y90.0 Blood alcohol level of less than 20 mg/100 ml; R07.9 Chest pain, unspecified; Z63.5 Disruption of family by separation and divorce
CPT/HCPCS: 36415; 80053; 80307; 80320; 82248; 83735; 84100; 84443; 85025; 85610; 93005; 96374; 97802; 99221; 99284; J7030; A4216; G0378; G0480